=== PATIENT | male | born 1975 | race Asian ===

== ENCOUNTER 2021-08-27 09:32 | Outpatient (REF) | payer BC, SELFPAY ==
[2021-08-27 11:34] LABS: Estimated Average Glucose 120 mg/dL; Hemoglobin A1c % 5.8 %
[2021-08-27 11:37] LABS: Creatinine Urine 126.04 mg/dL; Microalbum/Creatinine Ratio Ur 10.3 ug/mg cr
[2021-08-27 11:41] LABS: B Type Natriuretic Peptide 113 pg/mL (<100)
[2021-08-27 11:46] LABS: Alanine Aminotransferase 28 U/L (0-40); Alkaline Phosphatase 59 U/L (39-117); Anion Gap 15 (12-20); Aspartate Amino Transferase 28 U/L (5-37); Bilirubin Total 0.5 mg/dL (0.0-1.0); Blood Urea Nitrogen 13 mg/dL (9-16); Calcium 9.1 mg/dL (8.4-10.2); Carbon Dioxide 22 mmol/L (22-29); Chloride 104 mmol/L (96-108); Cholesterol 199 mg/dL; Estimated Glomerular Filt Rate > 60; Glucose Fasting 106 mg/dL (60-99); HDL Cholesterol 39 mg/dL; LDL Cholesterol Calculated 113 mg/dl; Potassium 4.5 mmol/L (3.3-5.1); Sodium 136 mmol/L (135-145); Total Protein 7.4 g/dL (6.5-8.0); Triglycerides 238 mg/dL
[2021-08-27 11:57] LABS: Prostate Specific Antigen Scr 0.27 ng/mL (<0.05-4.0); TSH reflex Free T4 1.08 uIU/mL (0.32-4.0)
== END 2021-08-27 09:33 | disposition home or self-care (01) ==
LOC: HO.WFDLDS 09:32
PROVIDERS: Visit Provider Family Medicine
DX: Z00.00 Encounter for general adult medical examination without abnormal findings (principal); Z12.5 Encounter for screening for malignant neoplasm of prostate; I11.0 Hypertensive heart disease with heart failure; I50.9 Heart failure, unspecified; I42.9 Cardiomyopathy, unspecified; R73.01 Impaired fasting glucose
CPT/HCPCS: 36415; 80053; 80061; 82043; 83036; 83880; 84153; 84443

== ENCOUNTER 2023-09-21 09:18 | Outpatient (AMB) | payer BC, SELFPAY ==
[2023-09-21 09:31] VITALS: BP 132/76; PULSE 102; O2SAT 99; BMI 32.8
--- NOTE | 2023-09-21 09:31 | A.OFFPC_ITS ---
Vital Signs 09/21/23 09:31 Height 5 ft 9 in Weight 222 lb BMI 32.8 BP 132/76 Pulse 102 H Pulse Source Pulse Oximeter Pulse Oximetry (%) 99 Oxygen Delivery Method Room Air Intake Visit Reasons: f/u diabetes and chronic conditions Intake Note: Patient is here to follow up on diabetes today. Patient would like referral to endocrinology. Allergies No Known Allergies Allergy (Verified 09/21/23 09:34) Tobacco use date assessed: 09/21/23 Dental Screening Dental Screen Date: 09/21/23 Did you have a dental visit in the last 12 months?: Yes Did you have a dental problem in the last 6 months where you did not have access to dental care?: No Was dental information given to patient?: Patient has dentist HPI f/u diabetes and chronic conditions HPI Details 47 y/o male presents to f/u diabetes and chronic conditions. Last A1c 01/22/23 5.0%. He is on Trulicity and metformin for his diabetes but pt states since his surgery he has not been taking any medications for his diabetes. Pt is s/p heart transplant - surgery performed in May. Pt reports morning blood sugars in the 110s and 200s before dinner. A1c today 09/21/23 6.7%. Blood pressure today 132/76, 102p. Pt reports he has been exercising and will start cardiac rehab. [facility] Medical History History of Hodgkin's lymphoma Surgical History History of open heart surgery Family History Mother No problems noted. Father No problems noted. Social History Housing: House Patient Tobacco Use Status: Never used Tobacco e-Cigarette/Vaping Use: Never Used Second Hand Smoke Exposure: No Current occupational status: employed Cognitive needs: No Hearing needs: No Vision needs: No Questionnaire PHQ-9 Over the last 2 weeks, how often have you been bothered by any of the following problems? 1. Little interest or pleasure in doing things: not at all 2. Feeling down, depressed, or hopeless: not at all 3. Trouble falling or staying asleep, or sleeping too much: not at all 4. Feeling tired or having little energy: not at all 5. Poor appetite or overeating: not at all 6. Feeling bad about yourself - or that you are a failure or have let yourself or your family down: not at all 7. Trouble concentrating on things, such as reading the newspaper or watching television: not at all 8. Moving or speaking so slowly that other people could have noticed. Or the opposite - being so fidgety or restless that you have been moving around a lot more than usual: not at all 9. Thoughts that you would be better off or of hurting yourself in some way: not at all Total score: 0 Source: Developed by Drs. Brayan Reyes, Cecily Quijano, Corbin Karimi and colleagues, with an educational meredith from [employer]. Thrive Questionnaire Date Thrive assessed: 09/21/23 I am a: Patient What is your living situation today?: I have a steady place to live Within the past 12 months, did the food you bought not last and you didn't have the money to get more?: Never true Within the past 12 months, did you worry whether your food would run out before you got money to buy more?: Never true Do you have trouble paying for medicines?: No Do you have trouble getting transportation to medical appointments?: No Do you have trouble paying your heating and electricity bill?: No Do you have trouble taking care of your child, family member or friend?: No Do you have trouble with day-to-day activities such as bathing, preparing meals, shopping, managing finances, etc.?: No Are you currently unemployed and looking for a job?: No Are you interested in more education?: No THRIVE Score: 0 AUDIT C Alcohol Use Questionnaire (AUDIT-C) 1. How often do you have a drink containing alcohol?: Never 3. How often do you have six or more drinks on one occasion?: Never Total Score: 0 AISHWARYA-7 AMB Questionnaire AISHWARYA-7 Date AISHWARYA - 7 assessed: 09/21/23 Feeling nervous, anxious, or on edge: 0 = Not at all Not being able to stop or control worryin = Not at all Worrying too much about different things: 0 = Not at all Trouble relaxin = Not at all Being so restless that it is hard to sit still: 0 = Not at all Becoming easily annoyed or irritable: 0 = Not at all Feeling afraid as if something awful might happen: 0 = Not at all Total AISHWARYA-7 score (0-4 normal; 5-9 mild; 10-14 moderate; 15-21 severe): 0 Source: Developed by Drs. Brayan Reyes, Cecily Quijano, Corbin Karimi and colleagues, with an educational meredith from [employer]. Review of Systems Const Denies chills, Denies fatigue, Denies fever(s), Denies headache(s) and Denies weakness ENT Denies dizziness and Denies headache(s) Card Denies chest pain, Denies lightheadedness, Denies dyspnea and Denies other (Palpitations) Resp Denies cough, Denies dyspnea, Denies wheezing and Denies other ( shortness of breath) Musc Denies numbness and Denies tingling Neuro Denies dizziness, Denies headache(s), Denies numbness, Denies tingling, Denies paresthesias and Denies weakness Psych Denies anxiety and Denies depression Endo Denies fatigue Aller/Immun Denies wheezing Physical exam (Primary Care) Vital Signs: Last Vital Signs Pulse 102 H 09/21/23 09:31 BP 132/76 09/21/23 09:31 Pulse Ox 99 09/21/23 09:31 Oxygen Delivery Method Room Air 09/21/23 09:31 BMI result Body Mass Index 32.8 Tobacco/Smoking Status: Tobacco use Status Tobacco use date assessed 09/21/23 09/21/23 09:51 Patient Tobacco Use Status Never used Tobacco 09/21/23 09:51 e-Cigarette/Vaping Use Never Used 09/21/23 09:51 PHQ-9: PHQ-9 Score PHQ-9: Total score 0 09/21/23 09:51 Thrive Assessment: Date of Thrive Assessment Date Thrive assessed 09/21/23 09/21/23 09:51 Const General: no acute distress and well developed Nutritional Appearance: well nourished Orientation/consciousness: patient oriented x3 HENMT Head: Yes normocephalic and Yes atraumatic Eyes General: appearance normal, both eyes and all related structures Pupils: Equal, round and reactive pupils present EOM: EOMs intact bilaterally Resp Effort & Inspection: normal respiratory effort Auscultation: clear to auscultation bilaterally Cardio Rate: regular rate Rhythm: regular rhythm Heart sounds: S1 normal heart sound present, S2 normal heart sound present, no gallops, no murmurs and no rubs Neuro General: patient oriented x3 and gait normal Cranial nerves: Yes Equal, round and reactive pupils present Psych Affect: normal affect Results AMB Hemoglobin A1c AMB Hemoglobin A1c 6.7 % Last Edit by Silva Kiran CMA on 09/21/23 10:03 Assessment and Plan Assessment & Plan (1) Diabetes: Code(s): E11.9 - Type 2 diabetes mellitus without complications Plan: A1c?6.7%.??Goal?is?less?than?7.0% Currently?diet?controlled Patient?requests?referral?to?endocrinology?which?is?made (2) Essential hypertension: Code(s): I10 - Essential (primary) hypertension Plan: Fair?control.??Goal?is?less?than?130/80 Continue?current?medication?regimen Follow-up?with?her?transplant?team?as?recommended (3) Status post heart transplant: Code(s): Z94.1 - Heart transplant status Plan: Stable?on?antirejection?medication?and?cardiac?meds Follow-up?with?transplant?team?as?recommended (4) Immunization counseling: Code(s): Z71.85 - Encounter for immunization safety counseling Plan: Has?received?influenza?and?pneumonia?shots Recommend?he?talk?to?his?transplant?team?about?RSV Orders: Orders Complete Blood Count Auto Diff Today Z00.00 - Encounter for general adult medical examination without abnormal findings Prostate Specific Antigen Scr Today Z12.5 - Encounter for screening for malignant neoplasm of prostate Comprehensive [place]. Panel Fast Today Z00.00 - Encounter for general adult medical examination without abnormal findings Lipid Panel Today Z00.00 - Encounter for general adult medical examination without abnormal findings Microalbumin, Random (w Creat) Today I10 - Essential (primary) hypertension TSH reflex Free T4 Today Z00.00 - Encounter for general adult medical examination without abnormal findings UA and rflx microscopic Today Z00.00 - Encounter for general adult medical examination without abnormal findings AMB Hemoglobin A1c Today Z13.9 - Encounter for screening, unspecified Referrals Endocrinology Referral E11.9 - Type 2 diabetes mellitus without complications, Z94.1 - Heart transplant status Coding Level of Care Code Est Pt Level 4 (84598) Diagnoses Diabetes E11.9 Essential hypertension I10 Status post heart transplant Z94.1 Immunization counseling Z71.85
== END 2023-09-21 10:18 | disposition home or self-care (01) ==
PROVIDERS: PCP Family Medicine; Visit Provider Family Medicine
DX: E11.9 Type 2 diabetes mellitus without complications (principal); I10 Essential (primary) hypertension; Z94.1 Heart transplant status; Z71.85 Encounter for immunization safety counseling
CPT/HCPCS: 83036; 99214

== ENCOUNTER 2023-09-21 10:26 | Outpatient (REF) | payer BC, SELFPAY ==
[2023-09-21 14:48] LABS: MANUAL DIFF FLAG NO
[2023-09-21 15:00] LABS: Appearance Urine Clear; Color Urine Yellow; Glucose Urine UA Negative (Negative); Leukocyte Esterase Urine Negative (Negative); Nitrite Urine Negative (Negative); PH 5.5 (5.0-9.0); Urine Blood Negative (Negative); Urine Ketones Negative (Negative); Urine Protein Negative (Neg-Trace)
[2023-09-21 15:04] LABS: Basophils Absolute Auto 0.1 X10*3/uL (0.0-0.2); Basophils Percent Auto 0.6 % (0-2); Eosinophils Absolute Auto 0.1 X10*3/uL (0.0-0.4); Eosinophils Percent Auto 1.1 % (0-4); Hematocrit 43.6 % (42.0-52.0); Hemoglobin 13.2 g/dl (14.0-18.0); Imm Gran Abs Auto 0.11 X10*3/uL (0.00-0.03); Imm Gran Pct Auto 1.2 % (0.0-0.4); Lymphocytes Absolute Auto 1.2 X10*3/uL (1.2-4.9); Lymphocytes Percent Auto 13.8 % (20-40); Mean Corpuscular HGB Conc 30.3 g/dl (31.0-36.0); Mean Corpuscular Hemoglobin 25.2 pg (27.0-33.0); Mean Corpuscular Volume 83.2 fL (80.0-98.0); Monocytes Absolute Auto 0.4 X10*3/uL (0.1-1.2); Monocytes Percent Auto 4.8 % (2-11); Neutrophils Absolute Auto 7.1 x10*3/uL (2.0-8.3); Neutrophils Percent Auto 78.5 % (45-73); Platelet Count 253 X10*3/uL (160-400); Red Blood Count 5.24 X10*6/uL (4.60-5.80); Red Cell Distribution Width 21.5 % (11.0-16.0)
[2023-09-21 15:55] LABS: Creatinine Urine 12.91 mg/dL; Microalbum/Creatinine Ratio Ur 61.9 ug/mg cr (<30)
[2023-09-21 16:06] LABS: Alanine Aminotransferase 18 U/L (0-40); Albumin Level 4.3 g/dL (3.5-5.0); Alkaline Phosphatase 50 U/L (39-117); Anion Gap 14 (12-20); Aspartate Amino Transferase 16 U/L (5-37); Bilirubin Total 0.4 mg/dL (0.0-1.0); Blood Urea Nitrogen 28 mg/dL (9-16); Calcium 9.9 mg/dL (8.4-10.2); Carbon Dioxide 29 mmol/L (22-29); Chloride 103 mmol/L (96-108); Cholesterol 205 mg/dL (<200); Estimated Glomerular Filt Rate > 60; Glucose Fasting 146 mg/dL (60-99); HDL Cholesterol 68 mg/dL (>40); LDL Cholesterol Calculated 95 mg/dL (<100); Potassium 4.5 mmol/L (3.3-5.1); Sodium 141 mmol/L (135-145); Total Protein 7.5 g/dL (6.5-8.0); Triglycerides 210 mg/dL (<150)
[2023-09-21 16:17] LABS: Prostate Specific Antigen Scr 0.54 ng/mL (<0.05-4.0); TSH reflex Free T4 1.11 uIU/mL (0.32-4.0)
== END 2023-09-21 10:27 | disposition home or self-care (01) ==
LOC: HO.WFDLDS 10:26
PROVIDERS: Visit Provider Family Medicine
DX: Z00.00 Encounter for general adult medical examination without abnormal findings (principal); Z12.5 Encounter for screening for malignant neoplasm of prostate; I10 Essential (primary) hypertension
CPT/HCPCS: 36415; 80053; 80061; 81003; 82043; 82570; 84153; 84443; 85025

== ENCOUNTER 2024-12-04 08:36 | Outpatient (AMB) | payer BC, SELFPAY ==
--- OUTSIDE RECORDS SUMMARY | 2024-12-04 09:08 | XMS_ITS | Clinical Summary ---
Author Organization [facility] ity Address [address] [place] [address] Care Team Providers Care [employer] Crewmember Name Role Phone Rebecca Barreto DO Primary Care Provider Social History Tobacco Use Types Packs/Day Years Used Date Smoking Tobacco: Never Assessed Sex and Gender Information Value Date Recorded Sex Assigned at Not on file Legal Sex Male 9:14 AM EST Gender Identity Not on file Sexual Orientation Not on file Plan of Treatment Health Maintenance Due Date Last Done Comments DTaP,Tdap,and Td Vaccines (1 - Tdap) 1994 Hepatitis B Vaccines (1 of 3 - 19+ 3-dose series) 1994 Cholesterol Screening (Lipid Panel) 08/02/2022 Colorectal Cancer Screening: Colonoscopy 08/02/2022 Depression Screening 08/02/2022 HIV Screening 08/02/2022 Hepatitis C Screening 08/02/2022 Social Influencers of Health Screening 08/02/2022 COVID-19 Vaccine ( - 2023-2 5 season) 2024 Influenza Vaccine (#1) 2024 HIB Vaccines Aged Out No longer eligi ble based on patient's age to complete this topic HPV Vaccines Aged Out No longer eligi ble based on patient's age to complete this topic Hepatitis A Vaccines Aged Out No long er eligible based on patient's age to complete this topic IPV Vaccines Aged Out No longer eligi ble based on patient's age to complete this topic MMR Vaccines Aged Out No longer eligi ble based on patient's age to complete this topic Meningococcal ACWY Vaccine Aged Out N o longer eligible based on patient's age to complete this topic Meningococcal B Vacine Aged Out No lo nger eligible based on patient's age to complete this topic Pneumococcal Vaccine: Pediat rics (0 to 5 Years) and At-Risk Patients (6 to 64 Years) Aged Out No longer eligible b ased on patient's age to complete this topic RSV Immunization Patients Un sonya 20 months Aged Out No longer eligible b ased on patient's age to complete this topic Varicella Vaccines Aged Out No longer eligible based on patient's age to complete this topic Care Teams [employer] Crewmember Relationship Specialty Start Date End Date Rebecca Barreto DO [address] [place] [address] [place] [address] PCP - General 05/02/13
--- NOTE | 2024-12-04 09:09 | A.OFFPC_ITS ---
Vital Signs 12/04/24 09:17 12/04/24 09:51 Height 5 ft 9 in Weight 256 lb 4 oz BMI 37.8 BP 120/78 Blood Pressure Location Rt brachial Position Sitting Respiration 14 Pulse 105 H 88 Pulse Source Pulse Oximeter Auscultation Temp 99.3 F Temp Source Oral Pulse Oximetry (%) 97 Oxygen Delivery Method Room Air Intake Visit Reasons: Physical Intake Note: patient is scheduled for a pe Nutrition Faculty Member Required: No Allergies No Known Allergies Allergy (Verified 12/04/24 09:10) Medication List - Last Reconciled 12/04/24 by Brandon Palomo MD acetaminophen 325 mg PO QID PRN ascorbic acid (vitamin C) mg PO aspirin 81 mg PO DAILY blood sugar diagnostic ([employer] Ultra Test strips) As directed cholecalciferol (vitamin D3) 25 mcg PO DAILY diltiazem HCl CD 180 mg PO DAILY diltiazem HCl CD 180 mg PO DAILY dulaglutide (Trulicity) mg subcut famotidine 20 mg PO BID lancets ([employer]ica Lancets) As directed lisinopril 5 mg PO magnesium aspart,citrate,oxide mg PO multivitamin 1 tab PO DAILY pen needle, diabetic (BD Ultra-Fine Mini Pen Needle) As directed rosuvastatin 5 mg PO DAILY tacrolimus XR 5 mg PO DAILY torsemide mg PO torsemide 20 mg PO DAILY torsemide 20 mg PO DAILY vitamin E (dl, acetate) 180 mg PO DAILY Tobacco use date assessed: 12/04/24 Dental Screening Dental Screen Date: 12/04/24 Did you have a dental visit in the last 12 months?: No Did you have a dental problem in the last 6 months where you did not have access to dental care?: No Was dental information given to patient?: No HPI Physical HPI Details 49 y/o male presents for a CPE with f/u labs and health maintenance. Hx of heart transplant 1 year ago. No recent labs to review. BP today 120/78, 105p. He is on lisinopril 5mg daily. A1c today 12/04/24 6.7%. He is on Trulicity. [facility] Medical History History of Hodgkin's lymphoma Surgical History History of open heart surgery Family History Mother No problems noted. Father No problems noted. Social History Housing: House Patient Tobacco Use Status: Never used Tobacco e-Cigarette/Vaping Use: Never Used Second Hand Smoke Exposure: No Current occupational status: employed Cognitive needs: No Hearing needs: No Vision needs: No Questionnaire PHQ-9 Over the last 2 weeks, how often have you been bothered by any of the following problems? 1. Little interest or pleasure in doing things: not at all 2. Feeling down, depressed, or hopeless: not at all 3. Trouble falling or staying asleep, or sleeping too much: several days 4. Feeling tired or having little energy: several days 5. Poor appetite or overeating: not at all 6. Feeling bad about yourself - or that you are a failure or have let yourself or your family down: not at all 7. Trouble concentrating on things, such as reading the newspaper or watching television: not at all 8. Moving or speaking so slowly that other people could have noticed. Or the opposite - being so fidgety or restless that you have been moving around a lot more than usual: not at all 9. Thoughts that you would be better off or of hurting yourself in some way: not at all Total score: 2 Depression Screening Interpretation: Negative Depression Screening Done: Yes 59488 - PHQ-9 Billing: Yes Source: Developed by Drs. Brayan Reyes, Cecily Quijano, Corbin Karimi and colleagues, with an educational meredith from [employer] Thrive Questionnaire Date Thrive assessed: 12/01/24 I am a: Patient What is your living situation today?: I have a steady place to live Within the past 12 months, did the food you bought not last and you didn't have the money to get more?: Never true Within the past 12 months, did you worry whether your food would run out before you got money to buy more?: Never true Do you have trouble paying for medicines?: No Do you have trouble getting transportation to medical appointments?: No Do you have trouble paying your heating and electricity bill?: No Do you have trouble taking care of your child, family member or friend?: No Do you have trouble with day-to-day activities such as bathing, preparing meals, shopping, managing finances, etc.?: No Are you currently unemployed and looking for a job?: No Are you interested in more education?: Yes Please select the resources that you would like help with: None Currently or been in a relationship where the following occur: No concerns reported THRIVE Score: 0 AUDIT C Alcohol Use Questionnaire (AUDIT-C) 1. How often do you have a drink containing alcohol?: Never 2. How many drinks containing alcohol do you have on a typical day when you are drinking?: 1 or 2 3. How often do you have six or more drinks on one occasion?: Never Total Score: 0 Score Reviewed/Action Taken: Yes AISHWARYA-7 AMB Questionnaire AISHWARYA-7 Date AISHWARYA - 7 assessed: 12/04/24 Feeling nervous, anxious, or on edge: 1 = Several days Not being able to stop or control worryin = Not at all Worrying too much about different things: 1 = Several days Trouble relaxin = Not at all Being so restless that it is hard to sit still: 1 = Several days Becoming easily annoyed or irritable: 0 = Not at all Feeling afraid as if something awful might happen: 0 = Not at all Total AISHWARYA-7 score (0-4 normal; 5-9 mild; 10-14 moderate; 15-21 severe): 3 Source: Developed by Drs. Brayan Reyes, Cecily Quijano, Corbin Karimi and colleagues, with an educational meredith from [employer] AISHWARYA-7 Assessment Billing AISHWARYA-7 Assessment Tool: AISHWARYA-7 Assessment 85668 Review of Systems Const Denies chills, Denies fatigue, Denies fever(s), Denies headache(s) and Denies weakness Eyes Denies change in vision ENT Denies dizziness, Denies headache(s), Denies hearing loss, Denies nasal congestion, Denies sinus pain, Denies sinus pressure and Denies sore throat Card Denies chest pain, Denies lightheadedness, Denies dyspnea and Denies other (palpitations) Resp Denies cough, Denies dyspnea and Denies wheezing GI Denies abdominal pain, Denies melena, Denies hematochezia, Denies change in bowel habits, Denies dyspepsia and Denies nausea Denies hematuria and Denies dysuria Musc Denies abnormal gait, Denies myalgias, Denies arthralgias, Denies numbness and Denies tingling Skin/Breast Denies rash, Denies unusual bruising and Denies wounds Neuro Denies abnormal gait, Denies dizziness, Denies headache(s), Denies memory loss, Denies numbness, Denies Sensory deficit (Neuro), Denies tingling and Denies weakness Psych Denies anxiety, Denies depression and Denies memory loss Endo Denies cold intolerance, Denies fatigue, Denies heat intolerance, Denies polydipsia and Denies polyuria Anton/Lymph Denies easy bleeding and Denies easy bruising Aller/Immun Denies wheezing Physical exam (Primary Care) Vital Signs: Last Vital Signs Temp 99.3 F 12/04/24 09:17 Pulse 105 H 12/04/24 09:17 Resp 14 12/04/24 09:17 BP 120/78 12/04/24 09:17 Pulse Ox 97 12/04/24 09:17 Oxygen Delivery Method Room Air 12/04/24 09:17 BMI result Body Mass Index 37.8 Tobacco/Smoking Status: Tobacco use Status Tobacco use date assessed 12/04/24 12/04/24 09:21 Patient Tobacco Use Status Never used Tobacco 12/04/24 09:21 e-Cigarette/Vaping Use Never Used 12/04/24 09:21 PHQ-9: PHQ-9 Score PHQ-9: Total score 2 12/04/24 09:28 Depression Screening Interpretation: Negative Thrive Assessment: Date of Thrive Assessment Date Thrive assessed 12/01/24 12/04/24 09:21 Currently or been in a relationship where the following occur: No concerns reported Const General: no acute distress, well developed, alert and awake Nutritional Appearance: well nourished Orientation/consciousness: patient oriented x3 HENMT Head: Yes normocephalic and Yes atraumatic Ears: hearing grossly normal bilaterally and TM's normal bilaterally General nose exam: Normal external nose present and Normal nares present Mouth: Normal oral and palatal mucosa present and moist mucous membranes Teeth and gingiva: dentition normal Throat: Yes posterior oropharynx normal Eyes General: appearance normal, both eyes and all related structures Pupils: Equal, round and reactive pupils present and Pupil accommodation reflex normal EOM: EOMs intact bilaterally Neck Neck: Yes normal visual inspection, Yes no lymphadenopathy and Yes trachea midline Thyroid: Thyroid normal Carotids: no bruits Lymphatic: no lymphadenopathy noted Chest Chest palpation & inspection: normal inspection of the chest Resp Effort & Inspection: normal respiratory effort Auscultation: clear to auscultation bilaterally Cardio Rate: regular rate Rhythm: regular rhythm Heart sounds: S1 normal heart sound present, S2 normal heart sound present, no gallops, no murmurs and no rubs Bruits: no abdominal aortic bruits and no carotid bruits GI Palpation (GI): No Abdominal aortic bruit present, Soft to palpation, nontender, No hepatosplenomegaly present and No Rebound tenderness present Auscultation: normal bowel sounds General: Yes no CVA tenderness Back/Spine/Pelvis Back: no CVA tenderness Cervical Spine: cervical ROM normal and No Cervical spine tenderness Thoracic/Lumbar Spine: thoraco-lumbar ROM normal, No pain with thoraco-lumbar ROM, No thoracic spinal tenderness and No lumbar spinal tenderness Skin Lesions: no lesions Rashes: no rashes Trauma: no lacerations or abrasions Wounds: no wounds Nails: normal Neuro General: patient oriented x3 Cranial nerves: Yes Equal, round and reactive pupils present Cognition (Neuro): normal cognition Gait exam (Neuro): Normal gait present Motor exam (neuro): 5/5 motor strength present throughout Sensory Exam: No Sensory deficit (Neuro) Deep tendon reflexes (DTR's): Right patellar reflex intensity grade: 2+ and Left patellar reflex intensity grade: 2+ Extrem General: Yes normal to inspection and No edema Psych Appearance: grossly normal Affect: normal affect Attitude: cooperative Thought process: Normal thought process present Results AMB Hemoglobin A1c AMB Hemoglobin A1c 6.7 % Last Edit by JOVAN [place] on 12/04/24 09:25 Results Reviewed Results Reviewed: Laboratory Last Values Hgb A1c (Clinic) 6.7 % (4.0-6.0) H 12/04/24 09:23 Coding Level of Care Code Est Pt Level 3 (23598) Est Pt Prev Care 40-64y(75711) Diagnoses Adult general medical exam Z00.00 Essential hypertension I10 Diabetes E11.9 Screening for colon cancer Z12.11 Screening for prostate cancer Z12.5 Heart transplanted Z94.1 Additional Codes AISHWARYA-7 Assessment Billing - AISHWARYA-7 Assessment Tool: AISHWARYA-7 Assessment [id number] ([id number]) PHQ-9 - 06409 - PHQ-9 Billing: Yes ([id number]) Assessment & Plan Assessment & Plan (1) Adult general medical exam: Code(s): Z00.00 - Encounter for general adult medical examination without abnormal findings Category: Medical Plan: An?year?old?male?with?a?history?of?heart?transplant?1?year?ago returns?for?complete?physical?exam Encouraged?healthy?diet?with?active?lifestyle?and?exercise (2) Essential hypertension: Code(s): I10 - Essential (primary) hypertension Category: Medical Plan: Blood?pressure?is?controlled.??Goal?is?less?than?130/80 Continue?current?medications (3) Diabetes: Code(s): E11.9 - Type 2 diabetes mellitus without complications Category: Medical Plan: A1c?6.7%.??Steady?in?controlled. He?has?been?switched?to?Ozempic?from?Trulicity?since?the?last?time?I?saw?him. Has?been?on?Ozempic?1?mg weekly for?1?month Will?increase?to?2?mg (4) Screening for colon cancer: Code(s): Z12.11 - Encounter for screening for malignant neoplasm of colon Category: Medical Plan: Patient?says?he?had?a?colonoscopy?a?little?over?a?year?ago?prior?to?his?heart?tr ansplant, will?request?report (5) Screening for prostate cancer: Code(s): Z12.5 - Encounter for screening for malignant neoplasm of prostate Category: Medical Plan: Check?PSA (6) Heart transplanted: Code(s): Z94.1 - Heart transplant status Category: Surgical Plan: Doing?well Blood?sugar,?blood?pressure?well?controlled. Will?check?lipids Remains?on?Tacrolimus?and?tolerating?well. Follow-up?with?your?sales donor recruitment representative?as?recommended Work?at?weight?loss Orders: Orders Microalbumin, Random (w Creat) Today I10 - Essential (primary) hypertension, Z94.1 - Heart transplant status AMB Hemoglobin A1c Today E11.9 - Type 2 diabetes mellitus without complications Lipid Panel Today Z00.00 - Encounter for general adult medical examination without abnormal findings, Z94.1 - Heart transplant status Comprehensive [place]. Panel Fast Today Z00.00 - Encounter for general adult medical examination without abnormal findings, Z94.1 - Heart transplant status TSH reflex Free T4 Today Z00.00 - Encounter for general adult medical examination without abnormal findings, Z94.1 - Heart transplant status Complete Blood Count Auto Diff Today Z00.00 - Encounter for general adult medical examination without abnormal findings, Z94.1 - Heart transplant status Prostate Specific Antigen Scr Today Z12.5 - Encounter for screening for malignant neoplasm of prostate Referrals Dermatology Referral Z94.1 - Heart transplant status Cardiology Referral E11.29 - Type 2 diabetes mellitus with other diabetic kidney complication, R80.9 - Proteinuria, unspecified, Z94.1 - Heart transplant status Medications: New semaglutide (Ozempic) 2 mg (0.75 mL) subcut QWEEK 28 days 3 mL 3RF
[2024-12-04 09:17] VITALS: BP 120/78; PULSE 105; RESP 14; TEMP 37.4; O2SAT 97; BMI 37.8
[2024-12-04 09:51] VITALS: PULSE 88
== END 2024-12-04 09:49 | disposition home or self-care (01) ==
LOC: HO.HMCFM 08:37
PROVIDERS: PCP Family Medicine; Visit Provider Family Medicine
DX: Z00.00 Encounter for general adult medical examination without abnormal findings (principal); I10 Essential (primary) hypertension; E11.9 Type 2 diabetes mellitus without complications; Z94.1 Heart transplant status; Z12.11 Encounter for screening for malignant neoplasm of colon; Z12.5 Encounter for screening for malignant neoplasm of prostate

== ENCOUNTER → 2024-12-04 08:36 | Outpatient (BNVA) | payer BC, SELFPAY | PROVIDERS: PCP Family Medicine; Visit Provider Family Medicine | DX: Z00.00 Encounter for general adult medical examination without abnormal findings (principal); I10 Essential (primary) hypertension; E11.9 Type 2 diabetes mellitus without complications; Z94.1 Heart transplant status | CPT/HCPCS: 83036; 96127 ==

== ENCOUNTER 2024-12-04 09:55 | Outpatient (REF) | payer BC, SELFPAY ==
[2024-12-04 11:22] LABS: MANUAL DIFF FLAG NO
[2024-12-04 11:26] LABS: Basophils Percent Auto 0.4 % (0-2); Eosinophils Absolute Auto 0.2 X10*3/uL (0.0-0.4); Eosinophils Percent Auto 2.4 % (0-4); Hematocrit 41.2 % (42.0-52.0); Hemoglobin 13.8 g/dl (14.0-18.0); Imm Gran Abs Auto 0.03 X10*3/uL (0.00-0.03); Imm Gran Pct Auto 0.4 % (0.0-0.4); Lymphocytes Absolute Auto 1.3 X10*3/uL (1.2-4.9); Lymphocytes Percent Auto 17.1 % (20-40); Mean Corpuscular HGB Conc 33.5 g/dl (31.0-36.0); Mean Corpuscular Hemoglobin 27.9 pg (27.0-33.0); Mean Corpuscular Volume 83.2 fL (80.0-98.0); Mean Platelet Volume 9.2 fL (9.4-12.4); Monocytes Absolute Auto 0.7 X10*3/uL (0.1-1.2); Monocytes Percent Auto 9.3 % (2-11); Neutrophils Absolute Auto 5.3 x10*3/uL (2.0-8.3); Neutrophils Percent Auto 70.4 % (45-73); Platelet Count 276 X10*3/uL (160-400); Red Blood Count 4.95 X10*6/uL (4.60-5.80); White Blood Count 7.6 X10*3/uL (4.8-10.8)
--- OUTSIDE RECORDS SUMMARY | 2024-12-04 11:34 | XMS_ITS | Clinical Summary ---
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
[2024-12-04 12:20] LABS: Prostate Specific Antigen Scr 0.53 ng/mL (<0.05-4.0)
[2024-12-04 13:23] LABS: TSH reflex Free T4 1.35 uIU/mL (0.32-4.0)
[2024-12-04 13:29] LABS: Anion Gap 16 (12-20)
[2024-12-04 13:33] LABS: Alanine Aminotransferase 34 U/L (0-40); Albumin Level 4.3 g/dL (3.5-5.0); Alkaline Phosphatase 82 U/L (39-117); Aspartate Amino Transferase 46 U/L (5-37); Bilirubin Total 0.4 mg/dL (0.0-1.0); Blood Urea Nitrogen 23 mg/dL (9-16); Calcium 9.3 mg/dL (8.4-10.2); Carbon Dioxide 25 mmol/L (22-29); Chloride 103 mmol/L (96-108); Cholesterol 141 mg/dL (<200); Estimated Glomerular Filt Rate 53; Glucose Fasting 126 mg/dL (60-99); HDL Cholesterol 36 mg/dL (>40); LDL Cholesterol Calculated 68 mg/dL (<100); Potassium 3.9 mmol/L (3.3-5.1); Sodium 140 mmol/L (135-145); Total Protein 8.2 g/dL (6.5-8.0); Triglycerides 189 mg/dL (<150)
[2024-12-04 14:30] LABS: Creatinine Urine 68.03 mg/dL; Microalbum/Creatinine Ratio Ur 13.2 ug/mg cr (<30)
== END 2024-12-04 09:56 | disposition home or self-care (01) ==
LOC: HO.WFDLDS 09:55
PROVIDERS: Visit Provider Family Medicine
DX: Z00.00 Encounter for general adult medical examination without abnormal findings (principal); Z94.1 Heart transplant status; I10 Essential (primary) hypertension; Z12.5 Encounter for screening for malignant neoplasm of prostate
CPT/HCPCS: 36415; 80053; 80061; 82043; 82570; 84153; 84443; 85025

== ENCOUNTER 2025-01-03 11:16 | Outpatient (AMB) | payer BC, SELFPAY ==
--- NOTE | 2025-01-03 11:21 | A.OFFPC_ITS ---
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 Labs drawn 12/04/24. Reviewed labs with pt. Mild anemia. A1c 5.7%. AST elevated at 46. Triglycerides 189. TC 141. LDL 68. HDL low at 36. PSA 0.53. PFSH Medical History History of Hodgkin's lymphoma Surgical History History of open heart surgery Family History Mother No problems noted. Father No problems noted. Social History Housing: House Patient Tobacco Use Status: Never used Tobacco e-Cigarette/Vaping Use: Never Used Second Hand Smoke Exposure: No Current occupational status: employed Cognitive needs: No Hearing needs: No Vision needs: No Questionnaire Thrive Questionnaire Date Thrive assessed: 12/01/24 AISHWARYA-7 AMB Questionnaire AISHWARYA-7 Date AISHWARYA - 7 assessed: 12/04/24 Source: Developed by Drs. Brayan Reyes, Cecily Quijano, Corbin Karimi and colleagues, with an educational meredith from [employer]. Review of Systems Const Denies chills, Denies fatigue, Denies fever(s), Denies headache(s) and Denies weakness ENT Denies dizziness and Denies headache(s) Card Denies dyspnea Resp Denies cough, Denies dyspnea, Denies wheezing and Denies other (shortness of breath) Musc Denies numbness and Denies tingling Neuro Denies dizziness, Denies headache(s), Denies numbness, Denies tingling and Denies weakness Psych Denies anxiety and Denies depression Endo Denies fatigue Aller/Immun Denies wheezing Physical exam (Primary Care) Tobacco/Smoking Status: Tobacco use Status Tobacco use date assessed 12/04/24 01/03/25 11:22 Patient Tobacco Use Status Never used Tobacco 01/03/25 11:22 e-Cigarette/Vaping Use Never Used 01/03/25 11:22 Thrive Assessment: Date of Thrive Assessment Date Thrive assessed 12/01/24 01/03/25 11:22 Telehealth Telehealth Telehealth Platform: Telephone Location of provider rendering services: practice address Location of patient: address on file Patient Identification confirmed using: Name, : Yes Telehealth method: voice only Patient verbally consented to treatment: Yes Patient verbally consented to billing insurance company: Yes Patient informed of any privacy concerns related to visit: Yes Minutes spent on Phone/Video with Pt.: 7 Coding Level of Care Code Tele Est Pt Level 2 (93268) Diagnoses Diabetes E11.9 Mild anemia D64.9 Elevated AST (SGOT) R74.01 Assessment & Plan Assessment & Plan (1) Diabetes: Code(s): E11.9 - Type 2 diabetes mellitus without complications Category: Medical Plan: Had?increased Ozempic?at?last?visit.??He?is?tolerating?this Will?recheck?A1c?at?his?next?visit (2) Mild anemia: Code(s): D64.9 - Anemia, unspecified Category: Medical Plan: Likely?anemia?of?chronic?disease We?can?continue?to?monitor?this?periodically (3) Elevated AST (SGOT): Code(s): R74.01 - Elevation of levels of liver transaminase levels Category: Medical Plan: Mildly?elevated?liver?enzyme Encouraged?good?hydration?and?will?recheck?at?next?visit Orders: Orders Comprehensive [place]. Panel Fast Today I42.9 - Cardiomyopathy, unspecified, Z00.00 - Encounter for general adult medical examination without abnormal findings Lipid Panel Today I42.9 - Cardiomyopathy, unspecified, Z00.00 - Encounter for general adult medical examination without abnormal findings Microalbumin, Random (w Creat) Today I10 - Essential (primary) hypertension Hemoglobin A1c Today E11.29 - Type 2 diabetes mellitus with other diabetic kidney complication, R73.01 - Impaired fasting glucose, R80.9 - Proteinuria, unspecified
--- OUTSIDE RECORDS SUMMARY | 2025-01-03 12:45 | XMS_ITS | Clinical Summary ---
Author Organization [facility] ity Address [address] [place] [address] Care Team Providers Care Emergency Crew Supervisor Name Role Phone Rebecca Barreto DO Primary [...] age to complete this topic Meningococcal B Vaccine Aged Out No l onger eligible based on patient's age to complete [...] age to complete this topic Care Teams Emergency Crew Supervisor Relationship Specialty Start Date End Date Rebecca Barreto DO [address] [place] [address] [place] [address] PCP - General 05/02/13
== END 2025-01-03 17:05 | disposition home or self-care (01) ==
LOC: HO.HMCFM 11:16
PROVIDERS: PCP Family Medicine; Visit Provider Family Medicine
DX: E11.9 Type 2 diabetes mellitus without complications (principal); D64.9 Anemia, unspecified; R74.01 Elevation of levels of liver transaminase levels

== ENCOUNTER → 2025-01-03 11:16 | Outpatient (BNVA) | payer BC, SELFPAY | PROVIDERS: PCP Family Medicine; Visit Provider Family Medicine ==